=== PATIENT | male | born 1980 | race Caucasian/White ===

== ENCOUNTER → 2020-07-15 16:18 | Outpatient (BNVA) | payer OTHER, SELFPAY | PROVIDERS: Family Provider Family Medicine; Visit Provider Registered Nurse | DX: L98.9 Disorder of the skin and subcutaneous tissue, unspecified (principal) | CPT/HCPCS: 88305 ==

== ENCOUNTER → 2021-04-21 13:44 | Outpatient (BNVA) | payer OTHER, SELFPAY | PROVIDERS: Family Provider Family Medicine; Visit Provider Family Medicine | DX: Z76.89 Persons encountering health services in other specified circumstances (principal) | CPT/HCPCS: 80053; 80061; 85025 ==

== ENCOUNTER 2024-03-29 07:46 | Outpatient (RCR) | payer OTHER, SELFPAY | END 2024-04-13 23:59 | disposition home or self-care (01) | LOC: SOT 07:46 | PROVIDERS: Visit Provider Chiropractor | DX: M25.521 Pain in right elbow (principal) | CPT/HCPCS: 97035; 97110; 97166; G0283 ==

== ENCOUNTER 2024-04-14 06:00 | Outpatient (RCR) | payer OTHER, SELFPAY | END 2024-05-13 23:59 | disposition home or self-care (01) | LOC: SOT 06:00 | PROVIDERS: Visit Provider Chiropractor | DX: M25.521 Pain in right elbow (principal) | CPT/HCPCS: 97035; 97110; G0283 ==

== ENCOUNTER 2025-01-23 07:24 | Outpatient (CLI) | payer OTHER, SELFPAY ==
[2025-01-23 08:19] LABS: Hematocrit 46.4 % (37-53); Hemoglobin 16.10 g/dL (11.27-16.99); Mean Corpuscular HGB Conc 34.7 g/dL (30-55); Mean Corpuscular Hemoglobin 31.4 pg (27-33); Mean Corpuscular Volume 90.6 fl (82-101); Nucleated Red Blood Cells % 0 %; Platelet Count 251 10^3/cmm (157-399); Red Blood Count 5.12 10^6/uL (3.85-5.65); White Blood Count 6.48 10^3/uL (3.29-11.43)
[2025-01-23 09:05] LABS: Alanine Aminotransferase 47 U/L (0-41); Albumin Level 4.3 g/dL (3.5-5.2); Alkaline Phosphatase 53 U/L (40-130); Anion Gap 14.5 (5-19); Aspartate Amino Transferase 25 U/L (0-40); Blood Urea Nitrogen 13 mg/dL (6-20); Calcium 9.5 mg/dL (8.5-10.5); Carbon Dioxide 27 mmol/L (22-29); Chloride 102 mmol/L (98-107); Cholesterol 194 mg/dL (0-200); Globulin 3.0 g/dL (1.3-4.6); Glucose 111 mg/dL (65-115); HDL Cholesterol 82 mg/dL (60-100); Osmolality Calculated 289 mOsm/kg (285-295); Potassium 4.5 mmol/L (3.5-5.1); Sodium 139 mmol/L (136-145); Thyroid Stimulating Hormone 1.65 uIU/mL (0.27-4.20); Total Protein 7.3 g/dL (6.6-8.7); Triglycerides 92 mg/dL (0-150)
== END 2025-01-23 07:25 | disposition home or self-care (01) ==
LOC: LAB 07:25
PROVIDERS: PCP Family Medicine; Visit Provider Family Medicine
DX: Z00.00 Encounter for general adult medical examination without abnormal findings (principal); E78.2 Mixed hyperlipidemia; R53.82 Chronic fatigue, unspecified; E55.9 Vitamin D deficiency, unspecified
CPT/HCPCS: 36415; 80053; 80061; 82306; 84443; 85025

== ENCOUNTER 2025-02-26 08:18 | Emergency (ER) | payer OTHER, SELFPAY ==
--- NOTE | 2025-02-26 08:28 | CT_ITS ---
WS: [id number] CT ABDOMEN AND PELVIS WITH CONTRAST HISTORY: Abdominal pain for 1 week. TECHNIQUE: Imaging performed of the abdomen and pelvis with IV contrast. Single phase imaging of the abdomen. Coronal and sagittal reformats are submitted. All CT scans at [facility] use at least one of these dose optimization techniques: automated exposure control; mA and/or kV adjustment per patient size (includes targeted exams where dose is matched to clinical indication); or iterative reconstruction. IV CONTRAST: Omnipaque 350; 100 mL IV. Oral contrast: No DLP: 813.63 mGy.cm COMPARISON: 07/26/2008 Lower thorax: Lung bases are clear. Heart is normal size. Circumferential distal esophageal wall thickening with mild enhancement. Liver/biliary system: Normal size with no intrahepatic dilatation. Gallbladder: Normal. No gallstones or wall thickening. No pericholecystic fluid. Pancreas: Normal size pancreas and pancreatic duct. No adjacent inflammation. Spleen: Normal size spleen. No mass or infarct. Adrenal glands: Normal. Right kidney: Normal size kidney. Nonobstructing 3 mm calcification upper pole. No perinephric stranding. Left kidney: Normal size kidney. Nonobstructing 2 mm calcification in the lower pole. No solid mass. No perinephric stranding. Aorta: Normal. Lymphadenopathy: There are few small lymph nodes in the upper abdomen largest lymph node is mildly hyperemic measuring 11 mm near the celiac axis. Free fluid: None. GI tract: No GI tract obstruction. There is a very small amount of increased fluid in the distal small bowel and proximal colon. Mild distal colon diverticular disease. No evidence for acute diverticulitis. No obstructive pattern. Normal appendix. Abdominal wall: Fat containing umbilical hernia. Pelvis: No free fluid or adenopathy within the pelvis. Bones: Mild degenerative disc disease at L4-5. CT/CT abdomen pelvis w con* [id number] IMPRESSION: 1. Circumferential distal esophageal wall thickening and enhancement. Likely e sophagitis. If symptoms do not improve with treatment endoscopy may be necessar y for direct visualization. 2. Bilateral nonobstructing renal calculi. No evidence for pyelonephritis. 3. No free fluid or free air. 4. Increased fluid in the distal small bowel and proximal colon consistent wit h liquid feces. 5. No GI tracts obstruction or colitis. 6. Normal appendix. 7. A few very nonspecific upper abdomen lymph nodes at the celiac axis. These may be reactive. These lymph nodes were not present on the study from 2008.
[2025-02-26 08:33] VITALS: BP 130/81; PULSE 74; RESP 16; TEMP 37.2; O2SAT 97; BMI 29.4
[2025-02-26 08:50] VITALS: BP 131/95
[2025-02-26] MEDS: iohexol 350 mg/mL 500 mL Btl (per mL) IV (08:52)
[2025-02-26 08:55] LABS: Hematocrit 45.6 % (37-53); Hemoglobin 15.90 g/dL (11.27-16.99); Mean Corpuscular HGB Conc 34.9 g/dL (30-55); Mean Corpuscular Hemoglobin 31.0 pg (27-33); Mean Corpuscular Volume 88.9 fl (82-101); Nucleated Red Blood Cells % 0 %; Platelet Count 248 10^3/cmm (157-399); Red Blood Count 5.13 10^6/uL (3.85-5.65); White Blood Count 8.12 10^3/uL (3.29-11.43)
[2025-02-26 09:08] LABS: INR 1.05 (0.8-1.2); Prothrombin Time 14.40 SECONDS (12.1-14.9)
[2025-02-26] MEDS: pantoprazole 40 mg SDV 80 MG IVP (09:10)
[2025-02-26 09:12] LABS: Lactic Sepsis W/Reflex 1.1 mmol/L (0.5-2.2)
[2025-02-26 09:13] LABS: Alanine Aminotransferase 42 U/L (0-41); Albumin Level 4.1 g/dL (3.5-5.2); Alkaline Phosphatase 53 U/L (40-130); Anion Gap 20.4 (5-19); Aspartate Amino Transferase 28 U/L (0-40); Blood Urea Nitrogen 17 mg/dL (6-20); Calcium 8.9 mg/dL (8.5-10.5); Carbon Dioxide 19 mmol/L (22-29); Chloride 102 mmol/L (98-107); Creatinine Clr Calc Pharmacy 100.0700; Globulin 3.7 g/dL (1.3-4.6); Glucose 131 mg/dL (65-115); Osmolality Calculated 289 mOsm/kg (285-295); Potassium 3.4 mmol/L (3.5-5.1); Sodium 138 mmol/L (136-145); Total Protein 7.8 g/dL (6.6-8.7)
[2025-02-26 09:14] VITALS: BP 122/71; PULSE 79; O2SAT 98
--- NOTE | 2025-02-26 09:32 | W.ED.ABDPA2 ---
HPI - Abdominal Pain General: Chief Complaint: Abdominal Pain Stated Complaint: abd pain fever for 1 day Time Seen by Provider: 02/26/25 08:30 History of Present Illness: 44-year-old male presents emergency room complaining of multiple dark tarry stools. Initially complained of some sore throat he contacted his primary care doctor was started on antibiotics and then started on prednisone and it continued to give him trouble 2 days ago he had 3 dark tarry stools he had 1 yesterday and 1 this morning as well no bright red blood per stool. He is not on any blood thinners he has not had any hematemesis or coffee-ground emesis he has stopped the prednisone. He still has a sore throat. He has been eating liquids and soft foods because he has difficulty swallowing states he has severe sore throat and his upper throat feels uncomfortable when he does try to swallow. He denies chest pain no cough or shortness of breath Associated Symptoms: Denies chills, dysuria and fever(s) Related Data Home Medications ?Medication ?Instructions ?Recorded ?Confirmed prednisone 20 mg tablet See Rx Instructions .Route .COMPLEX 02/26/25 02/26/25 Previous Rx's ?Medication ?Instructions ?Recorded doxycycline hyclate 100 mg capsule 100 mg PO BID 14 days #28 caps 02/25/25 metronidazole 500 mg tablet 500 mg PO Q8H #42 tabs 02/25/25 pantoprazole 40 mg tablet,delayed 40 mg PO DAILY 90 days #180 tabs 02/25/25 release sucralfate 1 gram tablet (Carafate) 1 g PO TID #90 tabs 02/25/25 pantoprazole 40 mg tablet,delayed 40 mg PO BID 14 days #28 tabs 02/26/25 release sucralfate 1 gram tablet (Carafate) 1 g PO Q6H PRN stomach upset #30 02/26/25 tabs Allergies Allergy/AdvReac Type Severity Reaction Status Date / Time No Known Allergies Allergy Verified 12/28/23 08:45 Review of Systems Const: Denies: fever(s) or chills Card: Denies: chest pain Resp: Denies: dyspnea GI: Denies: abdominal pain : Denies: dysuria, urinary frequency or urinary urgency Musc: Denies: neck pain or back pain Skin/Breast: Denies: rash PFSH ED PFSH: Social History Smoking and tobacco/nicotine status: never used tobacco/nicotine Alcohol intake: current Alcohol intake frequency: few times a week Substance/Drug Use: never Adopted: No Caregiver/support person: No Lives independently: No Current occupational status: employed Sexually active: Yes Do you think of yourself as: Straight/Heterosexual Current gender identity: Male Physical Exam Const: COMMON NORMALS: no acute distress GENERAL APPEARANCE: cooperative and comfortable ORIENTATION/CONSCIOUSNESS: Yes awake, Yes oriented to person, Yes oriented to place and Yes oriented to time HENMT: COMMON NORMALS: normocephalic, atraumatic and hearing grossly normal bilaterally HEAD & SCALP: normocephalic and atraumatic OTHER: Aphthous ulcers posterior pharynx Resp: COMMON NORMALS: normal respiratory effort, No retractions, No use of accessory muscles and clear to auscultation bilaterally AUSCULTATION: clear to auscultation bilaterally Cardio: COMMON NORMALS: regular rate, regular rhythm and No murmurs present (Cardio) RATE: regular rate RHYTHM: regular rhythm GI: COMMON NORMALS: Soft to palpation and No hepatosplenomegaly present AUSCULTATION: Yes normoactive bowel sounds PALPATION: Yes Soft to palpation, No Tenderness to palpation present (GI), No Guarding due to palpation present (GI) and Yes No hepatosplenomegaly present Extremity: COMMON NORMALS: normal to inspection, capillary refill normal, no clubbing, cyanosis or edema, no calf tenderness and no pedal edema Neuro: SENSORIUM/ORIENTATION: Yes oriented to person, Yes oriented to place and Yes oriented to time Skin: COMMON NORMALS: no rashes or lesions noted GENERAL SKIN EXAM: no rashes or lesions noted Course Vital Signs: Vital signs: Vital Signs Temperature 98.9 F 02/26/25 08:33 Pulse Rate 74 02/26/25 12:29 Respiratory Rate 16 02/26/25 08:33 Blood Pressure 124/86 02/26/25 12:29 Pulse Oximetry 98 02/26/25 12:29 Oxygen Delivery Me thod Room Air 02/26/25 09:57 MDM - Abdominal Pain Medical Decision Making Hemoglobin is stable BUN is not elevated. Hemoccult on the stool was negative. On the CT there is some lymphadenopathy mild and there is some thickening of the distal esophagus she will need to have an EGD. Discussed placing him in observation he would prefer to just go home at this point. Expressed to him the importance of having the EGD done. Will increase his pantoprazole to 40 mg twice a day, add Carafate 1 every 6 hours as needed he is already stop to prednisone. Return if he has any bright red blood per rectum or worse Medical Records I reviewed the patient's medical records. Lab Data I reviewed the patient's lab results. 02/26/25 08:45 02/26/25 08:45 Labs/Radiology: Radiology Impressions Abdomen/Pelvis CT 02/26/25 08:28 IMPRESSION: 1. Circumferential distal esophageal wall thickening and enhancement. Likely esophagitis. If symptoms do not improve with treatment endoscopy may be necessary for direct visualization. 2. Bilateral nonobstructing renal calculi. No evidence for pyelonephritis. 3. No free fluid or free air. 4. Increased fluid in the distal small bowel and proximal colon consistent with liquid feces. 5. No GI tracts obstruction or colitis. 6. Normal appendix. 7. A few very nonspecific upper abdomen lymph nodes at the celiac axis. These may be reactive. These lymph nodes were not present on the study from 2008. Laboratory Results WBC 8.12 10^3/uL (3.29-11.43) 02/26/25 08:45 RBC 5.13 10^6/uL (3.85-5.65) 02/26/25 08:45 Hgb 15.90 g/dL (11.27-16.99) 02/26/25 08:45 Hct 45.6 % (37-53) 02/26/25 08:45 MCV 88.9 fl (82-101) 02/26/25 08:45 MCH 31.0 pg (27-33) 02/26/25 08:45 MCHC 34.9 g/dL (30-55) 02/26/25 08:45 RDW 12.3 % (12.1-15.1) 02/26/25 08:45 Plt Count 248 10^3/cmm (157-399) 02/26/25 08:45 MPV 9.1 fL (7.4-10.4) 02/26/25 08:45 Neut % (Auto) 61.4 % 02/26/25 08:45 Lymph % (Auto) 24.0 % 02/26/25 08:45 [place] % (Auto) 13.2 % 02/26/25 08:45 Eos % (Auto) 0.6 % 02/26/25 08:45 Baso % (Auto) 0.4 % 02/26/25 08:45 Neut # (Auto) 4.99 10^3/uL (1.8-7.7) 02/26/25 08:45 Lymph # (Auto) 2.0 10^3/uL (0.8-4.8) 02/26/25 08:45 [place] # (Auto) 1.1 10^3/uL (0.2-0.9) H 02/26/25 08:45 Eos # (Auto) 0.1 10^3/uL (0.0-0.8) 02/26/25 08:45 Baso # (Auto) 0.0 10^3/uL (0.0-0.1) 02/26/25 08:45 Nucleated RBC % (auto) 0 % 02/26/25 08:45 Nucleated RBCs # 0.0 /100WBC 02/26/25 08:45 PT 14.40 SECONDS (12.1-14.9) 02/26/25 08:45 INR 1.05 (0.8-1.2) 02/26/25 08:45 Sodium 138 mmol/L (136-145) 02/26/25 08:45 Potassium 3.4 mmol/L (3.5-5.1) L 02/26/25 08:45 Chloride 102 mmol/L (98-107) 02/26/25 08:45 Carbon Dioxide 19 mmol/L (22-29) L 02/26/25 08:45 Anion Gap 20.4 (5-19) H 02/26/25 08:45 BUN 17 mg/dL (6-20) 02/26/25 08:45 Creatinine 1.1 mg/dL (0.7-1.2) 02/26/25 08:45 GFR Calculation 72.4 mL/min (90-130) L 02/26/25 08:45 Glucose 131 mg/dL (65-115) H 02/26/25 08:45 Calculated Osmolality 289 mOsm/kg (285-295) 02/26/25 08:45 Lactic Acid 1.1 mmol/L (0.5-2.2) 02/26/25 08:45 Calcium 8.9 mg/dL (8.5-10.5) 02/26/25 08:45 Total Bilirubin 1.1 mg/dL (0.15-1.2) 02/26/25 08:45 AST 28 U/L (0-40) 02/26/25 08:45 ALT 42 U/L (0-41) H 02/26/25 08:45 Alkaline Phosphatase 53 U/L (40-130) 02/26/25 08:45 Creatine Kinase 158 U/L (39-308) 02/26/25 08:45 Total Protein 7.8 g/dL (6.6-8.7) 02/26/25 08:45 Albumin 4.1 g/dL (3.5-5.2) 02/26/25 08:45 Globulin 3.7 g/dL (1.3-4.6) 02/26/25 08:45 Urine Color Yellow (Yellow) 02/26/25 11:21 Urine Appearance Clear (CLEAR) 02/26/25 11:21 Urine pH 6.0 (5-7) 02/26/25 11:21 Ur Specific [place] 1.095 (1.005-1.030) H 02/26/25 11:21 Urine Protein 1+ (Negative) A 02/26/25 11:21 Urine Glucose (UA) Negative (Normal) 02/26/25 11:21 Urine Ketones 1+ (Negative) H 02/26/25 11:21 Urine Blood 1+ (Negative) A 02/26/25 11:21 Urine Nitrate Negative (Negative) 02/26/25 11:21 Urine Bilirubin Negative (Negative) 02/26/25 11:21 Urine Urobilinogen 1.0 mg/dL (Negative) 02/26/25 11:21 Ur Leukocyte Esterase Negative (Negative) 02/26/25 11:21 Urine RBC 6-10 /hpf (0-2) 02/26/25 11:21 Urine WBC 0-5 /hpf (0-5) 02/26/25 11:21 Ur Squamous Epith Cells 0-5 /hpf (0-5) 02/26/25 11:21 Amorphous Sediment Not Reportable 02/26/25 11:21 Urine Bacteria None seen /hpf (NONE) 02/26/25 11:21 Hyaline Casts 0-4 /lpf H 02/26/25 11:21 Blood Type O Positive 02/26/25 08:45 Rho(D) Type Rh positive 02/26/25 08:45 Antibody Screen Negative 02/26/25 08:45 All radiology interpretation(s) finalized by discharge Discharge Plan Discharge Patient Disposition: Home Clinical Impression: GERD with esophagitis Condition: Stable Prescriptions: New pantoprazole 40 mg tablet,delayed release (DR/EC) 40 mg PO BID 14 Days Qty: 28 0RF sucralfate [Carafate] 1 gram tablet 1 g PO Q6H PRN (Reason: stomach upset) Qty: 30 0RF No Action doxycycline hyclate 100 mg capsule 100 mg PO BID 14 Days Qty: 28 0RF sucralfate [Carafate] 1 gram tablet 1 g PO TID Qty: 90 2RF metronidazole 500 mg tablet 500 mg PO Q8H Qty: 42 0RF Rx Instructions: DO NOT DRINK ALCOHOL WITH THIS MEDICATION. pantoprazole 40 mg tablet,delayed release (DR/EC) 40 mg PO DAILY 90 Days Qty: 180 0RF prednisone 20 mg tablet See Rx Instructions .ROUTE .COMPLEX Rx Instructions: TAKE THREE TABLETS BY MOUTH DAILY FOR 3 DAYS, TWO TABLETS DAILY FOR 3 DAYS, ONE TABLET DAILY FOR 3 DAYS, THEN ONE-HALF TABLET FOR 3 DAYS. Discharge Orders: Discharge ED (Routine); Ordered 02/26/25 Ordered By: Baldev Wilde Referrals: Chilo Masterson DO [Primary Care Provider, [facility]] Discharge Diet: Clear Liquid Discharge Activity: Increase activity as tolerated Patient Instructions: Opioid Safety, Pain Management, Patient Portal & Torrie Instructions Activity Restrictions/Additional Instructions: Thank you for choosing [facility] for your healthcare needs today. It is very important that you follow up as instructed or that you return to the Emergency Department should you have concerns or if your condition changes or worsens in any way. Emergency department visits are focused on emergent conditions, in some cases you may require further evaluation on an outpatient basis. You were seen in the emergency room with abdominal pain and reports of dark stools. Your Hemoccult in the exam room today was negative your hemoglobin is normal your BUN is not elevated. On the CT there is concern of thickening in the distal esophagus. This should be evaluated with an EGD. Will set you up for follow-up with surgery and EGD within the next day or 2. Return if you have any bright red blood in the stool lightheadedness dizziness or worsening symptoms. Increase your pantoprazole to 1 pill twice a day and you can use Carafate 1 every 6 hours as needed for stomach upset. For diet stick to liquids until your EGD is completed. (Please note that included in your discharge packet is information concerning opioid safety and pain management. This information is given to all patients were discharged from the ER regardless of their discharge diagnosis or the medicines they usually take or are prescribed.) Print Language: Tunisian Coding Level of Care Code ED Retail Representative for Manjit Barfield
[2025-02-26 09:57] VITALS: BP 125/83; PULSE 70; O2SAT 96
[2025-02-26 10:12] VITALS: BP 120/82; PULSE 66
[2025-02-26 11:42] LABS: Glucose Urine UA Negative (Normal); Nitrate Urine Negative (Negative)
[2025-02-26 11:46] LABS: Add Urine Microscopic? YES
[2025-02-26 12:11] LABS: Specific Gravity, Urine 1.095 (1.005-1.030)
[2025-02-26 12:29] VITALS: BP 124/86; PULSE 74; O2SAT 98
--- NOTE | 2025-02-26 13:00 | DCPLANNER ---
messaged gen surg for er f/u
== END 2025-02-26 12:29 | disposition home or self-care (01) ==
PROVIDERS: Emergency Provider Family Medicine; PCP Family Medicine
DX: K21.00 Gastro-esophageal reflux disease with esophagitis, without bleeding (principal)
CPT/HCPCS: 36415; 74177; 80053; 81001; 82550; 83605; 85025; 85610; 86850; 86900; 96374; 99285; J2470; J7030

== ENCOUNTER 2025-02-27 13:25 | Oncology outpatient (recurring) (ONCR) | payer OTHER, SELFPAY ==
[2025-02-27 13:59] VITALS: BP 122/78; PULSE 69; RESP 17; TEMP 36.6; O2SAT 97
== END 2025-03-13 23:59 | disposition home or self-care (01) ==
PROVIDERS: PCP Family Medicine; Visit Provider Family Medicine
DX: E86.0 Dehydration (principal)
CPT/HCPCS: 96360; J7030

== ENCOUNTER 2025-03-01 11:23 | Day surgery (SDC) | payer OTHER, SELFPAY ==
[2025-03-01 11:37] VITALS: BP 119/88; PULSE 79; RESP 18; TEMP 36.2; O2SAT 98; BMI 29.2
--- NOTE | 2025-03-01 11:51 | P.ANESASSM_ITS ---
Pre-Anesthetic Assessment Height/Weight: Height 1.8 m Weight 95.254 kg Temp Pulse Resp BP Pulse Ox O2 Del Method 97.1 F L 79 18 119/88 98 Room Air 03/01/25 11:37 03/01/25 11:37 03/01/25 11:37 03/01/25 11:37 03/01/25 11:37 03/01/25 11:37 Preop Diagnosis: peptic ulcer Operation Date: 03/01/25 13:30 Proposed Procedures p EGD EGD with Biopsy 35265 K27.9(Not Applicable) - Vinh Martel MD Familial anesthetic complications: none Was Beta Santiago taken within 24 hours: N/A Was Clonidine taken within 24 hours: N/A Last intake: Intake Last Liquid Date 02/28/25 Last Liquid Time 22:00 Last Solid Date 02/28/25 Last Solid Time 22:00 Social No alcohol and No tobacco Exam alert and oriented x 3 Airway Submandibular: within normal limits Cervical ROM: within normal limits Mallampati: Class I Dentition: full History/ROS No significant history except as noted Pulmonary None reported CV/HEM None reported None reported Hepatic None reported GI Peptic Ulcer Disease Metabolic None reported Musc/skel None reported Neuropsych None reported Anesthetic Plan ASA status: 2 Anesthesia: Anesthesia Evaluation and MAC Risk of > 500 ml blood loss (7ml/kg in children): No Medications/Allergies Home Medications ?Medication ?Instructions ?Recorded ?Confirmed ?Last Taken ?Type pantoprazole 40 mg tablet,delayed 40 mg PO BID 14 days #28 tabs 02/26/25 02/28/25 02/28/25 Rx release sucralfate 1 gram tablet (Carafate) 1 g PO Q6H PRN sto mach upset #30 02/26/25 02/28/25 02/28/25 Rx tabs Allergies Allergy/AdvReac Type Severity Reaction Status Date / Time No Known Allergies Allergy Verified 02/27/25 13:01 [facility] Anesthesia Social History Smoking and tobacco/nicotine status: never used tobacco/nicotine Alcohol intake: current Alcohol intake frequency: few times a week Substance/Drug Use: never Adopted: No Caregiver/support person: No Lives independently: No Current occupational status: employed Sexually active: Yes Do you think of yourself as: Straight/Heterosexual Current gender identity: Male
--- NOTE | 2025-03-01 12:07 | P.HPUD_ITS ---
Surgery/Procedure H&P Update DATE OF PROCEDURE: March 01, 2025 DATE H&P PERFORMED: 02/27/25 H&P UPDATE INFORMATION: I have reviewed H&P completed within last 30 days, I have examined patient prior to procedure, No changes to prior documentation, H&P is in [facility] EMR on date indicated and Risks and benefits of the procedure reviewed PREOP DIAGNOSIS: peptic ulcer PLANNED PROCEDURE: Operation Date: 03/01/25 13:30 Proposed Procedures p EGD EGD with Biopsy [id number] K27.9(Not Applicable) - Vinh Martel MD
[2025-03-01 12:29] VITALS: BP 112/66; PULSE 67; RESP 18; TEMP 36.6; O2SAT 94
[2025-03-01 12:48] VITALS: BP 119/65; PULSE 76; RESP 16; TEMP 36.6; O2SAT 98
--- NOTE | 2025-03-01 13:05 | ANE.PACU2 ---
Inpatient post-anesthesia follow up: Airway intact: Yes Vital signs: Temperature 98 F Pulse Rate 76 Respiratory Rate 16 Blood Pressure 119/65 Pulse Oximetry 98 Oxygen Delivery Me thod Room Air Oxygen Flow Rate Fraction of Inspir ed Oxygen Hydration adequate: Yes Nausea and vomiting: No Pain level: 1 Mental status: Baseline
== END 2025-03-01 13:08 | disposition home or self-care (01) ==
PROVIDERS: PCP Family Medicine; Visit Provider Surgery
PROC: 0DJ08ZZ Inspection of Upper Intestinal Tract, Via Natural or Artificial Opening Endoscopic (ICD-10-PCS; principal; 2025-03-01 13:30)
DX: K27.9 Peptic ulcer, site unspecified, unspecified as acute or chronic, without hemorrhage or perforation (principal); K29.50 Unspecified chronic gastritis without bleeding; K29.80 Duodenitis without bleeding; K22.10 Ulcer of esophagus without bleeding; K21.9 Gastro-esophageal reflux disease without esophagitis
CPT/HCPCS: 43239; 88305; 88312; 88342; J2704; J7030